=== PATIENT | female | born 1950 | race Caucasian/White ===

== ENCOUNTER 2018-11-13 06:14 | Day surgery (SDC) | payer OTHER, MEDICARE ==
[2018-11-08 15:29] VITALS: BMI 22.4
[2018-11-13] MEDS ORDERED: LIDOCAINE 1%/EPI 1:100000 (20 ML MULTI DOSE VIAL) ONE (07:07)
[2018-11-13] MEDS ORDERED: THROMBIN (RECOMBINANT) 5,000 UNIT VIAL TP ONE (07:07)
[2018-11-13] MEDS ORDERED: methylPREDNISolone ACET (DEPO) 40 MG/1 ML VIAL ONE (07:07)
[2018-11-13] MEDS ORDERED: GUM MASTIC/STORAX/MSAL/ALCOHOL 1 DRP DROPSBTL MC ONE (07:07)
[2018-11-13] MEDS ORDERED: CEFAZOLIN 2 GM in DEXTROSE 5%-WATER - 100 ML IVPB ONE (07:29)
[2018-11-13] MEDS ORDERED: oxyCODONE HCL 10 MG SUSTAINED ACTING TABLET PO STA (07:29)
--- NOTE | 2018-11-13 07:30 | HP ---
History & Physical Update - History History: No Change - Physical Physical: No Change - Assessment Assessment: No Change - Plan Plan: No Change (No Changes since visit on 11/06/18)
[2018-11-13] MEDS ORDERED: ePHEDrine SULFATE 50 MG/1 ML AMPULE ONE (07:55)
[2018-11-13] MEDS ORDERED: ONDANSETRON 4 MG/2 ML VIAL ONE (07:56)
[2018-11-13] MEDS ORDERED: PROPOFOL 20 ML ONE (07:56)
[2018-11-13] MEDS ORDERED: DEXAMETHASONE SOD PHOSPHATE 4 MG/1 ML VIAL ONE (07:56)
[2018-11-13] MEDS ORDERED: SODIUM CHLORIDE 0.9% P/F 10 ML VIAL IJ ONE (07:56)
[2018-11-13] MEDS ORDERED: LIDOCAINE HCL/PF 2% SDV 5ML VIAL ONE (07:56)
[2018-11-13] MEDS ORDERED: MIDAZOLAM HCL 2 MG/2 ML SINGLE DOSE VIAL ONE ×3 (07:56→08:53)
[2018-11-13] MEDS ORDERED: PHENYLEPHRINE HCL 10 MG/1 ML SINGLE DOSE VIAL ONE (07:59)
[2018-11-13] MEDS ORDERED: SUCCINYLCHOLINE CHLORIDE 200 MG/10 ML VIAL ONE (08:03)
[2018-11-13] MEDS ORDERED: BUPIVACAINE HCL/PF 0.5% (5MG/ML) 10 ML VIAL ONE (08:06)
[2018-11-13] MEDS ORDERED: DEXAMETHASONE SOD PHOSPHATE/PF 10 MG/ML SDV ONE (08:28)
[2018-11-13] MEDS ORDERED: BUPIVACAINE HCL/PF (5 MG/ML) 30 ML VIAL IJ ONE (08:29)
[2018-11-13] MEDS ORDERED: LIDOCAINE 1%/EPI 1:100000 (50 ML MULTI DOSE VIAL) INF ONE (09:00)
[2018-11-13] MEDS ORDERED: THROMBIN (BOVINE) 5,000 UNIT VIAL TP ONE (09:27)
[2018-11-13] MEDS ORDERED: GELATIN SPONGE,ABSORBABLE 1 GM PACKET TP ONE (09:28)
[2018-11-13] MEDS ORDERED: oxyCODONE HCL 5 MG TABLET PO PRN (09:43)
[2018-11-13] MEDS ORDERED: ONDANSETRON 4 MG/2 ML VIAL IVPUSH PRN (09:43)
[2018-11-13] MEDS ORDERED: LACTATED RINGERS SOLUTION 1,000 ML IV SCH (09:45)
[2018-11-13] MEDS ORDERED: methylPREDNISolone ACET (DEPO) 40 MG/1 ML VIAL IM ONE (10:05)
[2018-11-13 12:34] VITALS: TEMP 98.5
--- NOTE | 2018-11-13 12:36 | OP ---
DATE OF OPERATION: 11/13/2018 PREOPERATIVE DIAGNOSIS: Spinal stenosis L4-S1. POSTOPERATIVE DIAGNOSIS: Spinal stenosis L4-S1. PROCEDURE PERFORMED: Laminectomy L4-L5, L5-S1. SURGEON: Norman Galindo MD PLAQUE MAKER: RUDY Bryant ESTIMATED BLOOD LOSS: 50 mL. IV FLUIDS: Per Anesthesia. ANESTHESIA: Spinal/TLIP. COMPLICATIONS: There were none. DISPOSITION: The patient was brought to the PACU in stable condition. DESCRIPTION OF PROCEDURE: The patient was brought to the operating room by the Anesthesia staff. After appropriate patient identification was performed, spinal anesthesia was given. A TLIP block was also given. The patient was able to position herself prone onto the Dragan frame with all areas and bony prominences well padded at this time. Two needles were placed into the back to katie off the L4-S1 segments. X-ray was taken to confirm this was correct. The needle was removed, and 10 mL of lidocaine with epinephrine was injected into her back at this time. Her back was prepped and draped in a sterile manner. At this point, a time-out was completed. An incision was made from the top of L4 down to the bottom of S1. Dissection was carried down to the fascia, and the fascia was split open at this time. Appropriate retractor was then placed in. A spinal needle was placed onto the L5 lamina. X-ray was taken to confirm this was L5- S1. The needle was removed, and the microscope was brought in. At this point, the interspinous ligament at L4-L5 and L5-S1 was removed. The spinous process at L5 was removed. The ronguer was used to remove the remaining parts of the spinous process. The lamina was then removed. The flavum was removed. By the end of the procedure, the L5 and S1 nerve roots appeared to be well decompressed. All bleeding was well controlled at this time. Steroids was placed over the nerve root. FloSeal was placed over that. The fascia was closed with a No. 1 Vicryl suture. The subcutaneous tissue was closed with 2-0 Vicryl suture. The skin was closed with 3-0 Monocryl suture. Dermabond was applied. Steri-Strips were applied. Sterile dressing was applied. The patient was placed supine on the OR bed and brought to the PACU in stable condition. NORMAN GALINDO M.D. [id number] MTDD
--- NOTE | 2018-11-13 13:05 | SURG ---
Surgery Clinical Coder Note Clinical Coder: Cheli Olivarez PA-C Date of Service: 11/13/18 Diagnosis: L4-L5, L5-S1 spinal stenosis Procedure: Laminectomy of L4-L5, L5-S1 I was present for the entirety of the operative procedure. For further detail, please refer to operative report. Visit type - Case Type Case Type: Scheduled - Emergency Emergency Visit: No - New patient This patient is new to me today: Yes Date on this admission: 11/13/18
[2018-11-13 14:27] VITALS: BP 117/72; PULSE 68
== END 2018-11-13 14:10 | disposition home or self-care (01) ==
LOC: FASU 06:14
PROVIDERS: ATTEND Orthopaedic Surgery Orthopaedic Surgery of the Spine
PROC: 01NB0ZZ Release Lumbar Nerve, Open Approach (ICD-10-PCS; principal; 2018-11-13 09:22)
DX: M48.061 Spinal stenosis, lumbar region without neurogenic claudication (principal); M48.07 Spinal stenosis, lumbosacral region
CPT/HCPCS: 72100-TC-FY; 76000-TC-FY; 94760